=== PATIENT | male | born 2000 | race Caucasian/White ===

== ENCOUNTER 2022-04-09 17:35 | Observation (INO) | payer BC ==
[~2022-04-09] VITALS: Ht 182.9 cm; Wt 81.7 kg
[~2022-04-09 17:35] MED LIST: Inderal40 MG PO; LITH300C
[2022-04-10 00:10] LABS: Influenza A, PCR NEGATIVE (NEGATIVE); Influenza B, PCR NEGATIVE (NEGATIVE); Resp Syncytial Virus, PCR NEGATIVE (NEGATIVE); SARS-Cov-2 (COVID-19) PCR, MMC NEGATIVE (NEGATIVE)
[2022-04-10 01:33] LABS: Valproic Acid 29.2 ug/mL (50.0-100.0)
[2022-04-10 01:56] LABS: Lithium 0.61 mmol/L (0.60-1.20)
[2022-04-11 09:52] LABS: Lithium 0.42 mmol/L (0.60-1.20)
[2022-04-11] MEDS ORDERED: BUSPIRONE HCL30 M1 PO (11:31)
== END 2022-04-11 12:32 | disposition home or self-care (01) ==
LOC: ER 17:35 → EOR 17:36
PROVIDERS: Psychiatry & Neurology Psychiatry; ADMIT Emergency Medicine
DX: F29 Unspecified psychosis not due to a substance or known physiological condition (principal); F32.A Depression, unspecified; Z20.822 Contact with and (suspected) exposure to COVID-19; F41.9 Anxiety disorder, unspecified; R45.851 Suicidal ideations
CPT/HCPCS: 0241U; 36415; 80164; 80178; A9270

== ENCOUNTER 2022-04-23 06:07 | Observation (INO) | payer BC ==
[~2022-04-23] VITALS: Ht 182.9 cm; Wt 87.7 kg
[~2022-04-23 06:07] MED LIST changes: +BUSPIRONE HCL30 M1 PO; -LITH300C; +LITH300C PO
[2022-04-23] MEDS ORDERED: DEPAKOTE ER250 MG PO (07:21)
[2022-04-23 08:28] LABS: BASOPHILS PERCENT AUTO 1 % (0-2); EOSINOPHILS ABSOLUTE AUTO 0.32 K/mm3 (0.00-0.68); EOSINOPHILS PERCENT AUTO 3 % (0-6); Hematocrit 45.6 % (37.0-53.0); Hemoglobin 15.9 g/dL (13.5-17.5); IMMATURE GRAN ABSOLUTE AUTO 0.12 K/mm3 (0.00-0.10); IMMATURE GRAN PERCENT AUTO 1 % (0-1); LYMPHOCYTES ABSOLUTE AUTO 3.35 K/mm3 (0.84-5.20); LYMPHOCYTES PERCENT AUTO 33 % (21-46); MONOCYTES ABSOLUTE AUTO 0.79 K/mm3 (0.16-1.47); MONOCYTES PERCENT AUTO 8 % (4-13); Mean Corpuscular HGB 29.3 pg (26.0-34.0); Mean Corpuscular HGB Conc 34.9 g/dL (31.5-36.5); Mean Corpuscular Volume 84 fL (80-100); Mean Platelet Volume 10.1 fL (9.1-12.4); NEUTROPHILS ABSOLUTE AUTO 5.35 K/mm3 (1.96-9.15); NEUTROPHILS PERCENT AUTO 53 % (41-73); Platelet Count 268 K/mm3 (150-400); RDW Coefficient Variation 12.6 % (11.7-14.2); RDW Standard Deviation 38.3 fL (35.1-46.3); Red Blood Cell Count 5.43 M/mm3 (4.30-5.90); White Blood Cell Count 10.03 K/mm3 (4.00-11.30)
[2022-04-23 08:43] LABS: U Amphetamine Screen Not Detected; U Barbituate Screen Not Detected; U Benzodiazapine Screen Not Detected; U Buprenorphine Screen Not Detected; U Cannabinoids Screen Not Detected; U Cocaine Screen Not Detected; U Methadone Screen Not Detected; U Methamphetamine Screen Not Detected; U Opiates Screen Not Detected; U Oxycodone Screen Not Detected; U Phencyclidine Screen Not Detected; U Propoxyphene Screen Not Detected
[2022-04-23 08:50] LABS: Alanine Aminotransfer (ALT/SGP 26 U/L (12-78); Albumin, Blood 4.1 g/dL (3.4-5.0); Albumin/Globulin Ratio 1.2 (0.8-1.8); Alk Phos 78 U/L (50-136); Anion Gap 3 mmol/L (6-16); Aspartate Aminotrans (AST/SGOT 14 U/L (12-37); Bilirubin, Total 0.8 mg/dL (0.1-1.0); Blood Urea Nitrogen 12 mg/dL (8-24); Bun/Creatinine Ratio 11.7 (12.0-20.0); CO2, Blood 30 mmol/L (21-32); Calcium, Blood 8.6 mg/dL (8.5-10.1); Chloride, Blood 105 mmol/L (98-108); Creatinine, Blood 1.03 mg/dL (0.60-1.20); Ethanol (Alcohol), Blood, Med <3 mg/dL; Globulin, Blood 3.3 g/dL (2.2-4.0); Glomerular Filtration Rate 107 (60-); Glucose, Blood 99 mg/dL (70-99); Potassium, Blood 4.2 mmol/L (3.5-5.5); Sodium, Blood 138 mmol/L (136-145); Total Protein, Blood 7.4 g/dL (6.4-8.2)
[2022-04-23 09:05] LABS: Salicylate <1.7 mg/dL (2.8-20.0)
[2022-04-23 09:07] LABS: Acetaminophen, Random <2.0 ug/mL (10.0-30.0)
[2022-04-23 09:11] LABS: Lithium 0.27 mmol/L (0.60-1.20)
[2022-04-23 09:42] LABS: Influenza A, PCR NEGATIVE (NEGATIVE); Influenza B, PCR NEGATIVE (NEGATIVE); Resp Syncytial Virus, PCR NEGATIVE (NEGATIVE); SARS-Cov-2 (COVID-19) PCR, MMC NEGATIVE (NEGATIVE)
[2022-04-24] MEDS ORDERED: HYDHCL25 PO (12:22)
== END 2022-04-24 13:34 | disposition home or self-care (01) ==
LOC: ER 06:07 → EOR 06:08 → ER 19:43 → EOR 04-24 13:34
PROVIDERS: Emergency Medicine; ADMIT Emergency Medicine
DX: F32.A Depression, unspecified (principal); Z20.822 Contact with and (suspected) exposure to COVID-19
CPT/HCPCS: 0241U; 80053; 80178; 85025; A9270; G0480

== ENCOUNTER 2022-06-22 04:07 | Emergency (ER) | payer BC ==
[~2022-06-22] VITALS: Ht 182.9 cm; Wt 86.2 kg
[~2022-06-22 04:07] MED LIST changes: +DEPAKOTE ER250 MG PO; +HYDHCL25 PO
== END 2022-06-22 06:03 | disposition home or self-care (01) ==
LOC: ER 04:07
DX: R07.89 Other chest pain (principal); R00.2 Palpitations; R20.0 Anesthesia of skin; R42 Dizziness and giddiness; F41.9 Anxiety disorder, unspecified; Z79.899 Other long term (current) drug therapy
CPT/HCPCS: 93005; 93010